=== PATIENT | male | born 1990 | race Caucasian/White ===

== ENCOUNTER → 2023-03-14 08:21 | Outpatient (CLI) | payer OTHER, SELFPAY ==
--- NOTE | 2023-03-14 08:25 | DI.MRI.S_ITS ---
PROCEDURE: MR SHOULDER LT WO CON INDICATIONS: SHOULDER IMPINGEMENT,LEFT TECHNIQUE: Noncontrast oblique coronal T2 fast spin echo with fat saturation, oblique sagittal T1 spin echo and T2 fast spin echo with fat saturation, axial T1 spin echo and T2 fast spin echo with fat saturation through the shoulder. COMPARISON: None. FINDINGS: Image quality: Excellent. Rotator cuff: Low-grade articular and bursal surface partial thickness tear involving anterior to mid fibers of distal supraspinatus at its insertion on humeral head is seen extending to musculotendinous junction. Distal infraspinatus and subscapularis tendinosis is seen. No full-thickness rotator cuff tendon rupture. Sagittal images demonstrate no significant rotator cuff muscle atrophy. Bones and bursae: No bone marrow contusions or fractures. No acromioclavicular joint degeneration. The acromion demonstrates conventional anatomy, without an os acromiale. No pathologic subacromial-subdeltoid or subcoracoid bursal fluid is present. Capsule and soft tissues: There is subtle fraying of superior anterior labrum at 1-2 o'clock position concerning for subtle superior anterior labral tear. skyler head of the biceps tendon demonstrates normal location and morphology. The rotator interval appears normal, without fibrosis. The coracohumeral ligament is normal in thickness. IMPRESSION: 1. Low-grade articular and bursal surface partial thickness tear involving anterior to mid fibers of distal supraspinatus extending to musculotendinous junction. Distal infraspinatus and subscapularis tendinosis. No full-thickness rotator cuff tendon rupture. 2. No marrow edema. No fracture or dislocation. No significant joint effusion or intra-articular loose bodies. 3. Suggestion of subtle superior anterior labral tear at 1 to 2 o'clock position. Dictated by: Howard Cotto M.D. on 03/14/2023 at 10:35 Approved by: Howard Cotto M.D. on 03/14/2023 at 10:38
== END ==
LOC: MRI 08:23
PROVIDERS: Referring Provider Orthopaedic Surgery; Visit Provider Orthopaedic Surgery
DX: M75.112 Incomplete rotator cuff tear or rupture of left shoulder, not specified as traumatic (principal); M25.812 Other specified joint disorders, left shoulder
CPT/HCPCS: 73221